=== PATIENT | female | born 1965 | race Caucasian/White ===

== ENCOUNTER → 2020-05-24 12:12 | Outpatient (CLI) | payer OTHER, SELFPAY ==
--- NOTE | ~2020-05-24 | DEXA_ITS ---
Bone Density Report Name: Natalie Childs Age: 55 Sex: Female Ethnicity: White Date of : 1965 Indication: postmenopausal; screening for osteoporosis; hysterectomy; Referring Provider: GERALDINEMARTINE Study: Bone densitometry was performed. Exam Date: May 24, 2020 Accession number: [id number] Bone Density: Region BMD T-score Z-score Classification AP Spine (L1-L4) 1.076 0.3 1.3 Normal Femoral Neck (Left) 0.867 0.2 1.2 Normal Total Hip (Left) 1.106 1.3 2.0 Normal Femoral Neck (Right) 0.827 -0.2 0.9 Normal Total Hip (Right) 1.106 1.3 2.0 Normal Total Hip Mean 1.106 1.3 2.0 Normal World Health Organization criteria for BMD impression classify patients as: Normal (T-score at or above -1.0), Osteopenia (T-score between -1.0 and -2.5), or Osteoporosis (T-score at or below -2.5). 10-year Fracture Risk: FRAX not reported because: All T-scores for Spine Total, Hip Total, Femoral Neck at or above -1.0 Clinical Information Provided by Patient: Has used the following medications: Vitamin D Has the following medical conditions: Hysterectomy Patient maximum height was 67.2 Menopause Age: 53 Drinks caffeinated beverages Onset of menses at age 12 Number of children 0 Impression: The patient has normal bone mass. Discussion: BONE DENSITY IS ABOVE THE MINIMUM DESIRABLE LEVEL AT ALL SKELETAL SITES TESTED. This patient?s bone mineral density is above the minimum desirable level (T-score -1.0 or better) at all sites measured. The patient should follow a healthful lifestyle (good nutrition with adequate calcium and vitamin D, and appropriate weight-bearing exercise). Follow-Up: Consider repeating this study in 5 years or sooner if there is some new clinical indication. Reported by: [facility] on 05/24/2020 12:46:00 PM. Reviewed, dictated and finalized at location AJamie [facility]
--- NOTE | ~2020-05-24 | MM_ITS ---
EXAMINATION: MM screening [facility] BI w jannet HISTORY: Screening mammogram TECHNIQUE: Craniocaudal and mediolateral oblique 3-D tomosynthesis images were obtained and synthetic 2-D images were generated. CAD analysis was submitted and interpreted. COMPARISON: 10/06/2018, 09/09/2017, 08/28/2016 BREAST PARENCHYMAL COMPOSITION: There are scattered areas of fibroglandular density. FINDINGS: There is no evidence of suspicious mass, calcification, or architectural distortion to sugg est malignancy in either breast. There has been no suspicious interval change. IMPRESSION: 1. No mammographic evidence of malignancy. 2. Recommend routine screening mammography in one year. BI-RADS Category 1: Negative Reviewed, dictated and finalized at location A.
== END ==
PROVIDERS: Referring Provider Nurse Practitioner Family; Visit Provider Obstetrics & Gynecology Gynecology
DX: Z12.31 Encounter for screening mammogram for malignant neoplasm of breast (principal); Z78.0 Asymptomatic menopausal state
CPT/HCPCS: 77063; 77067; 77080

== ENCOUNTER → 2021-07-25 11:17 | Outpatient (CLI) | payer OTHER, SELFPAY ==
--- NOTE | ~2021-07-25 | US_ITS ---
EXAMINATION: US transvaginal DATE: 07/25/2021 11:37 INDICATION: Postmenopausal bleeding Comparison:No prior studies for comparison. TECHNIQUE: Multiple endovaginal sonographic images of the pelvis performed. FINDINGS: The uterus measures 7.8 x 3.5 x 4.2 cm. The endometrial complex measures 2.5 mm. The ovaries are not visualized, possibly atrophic. There is no free fluid in the pelvis. There are no abnormal masses seen on either side. IMPRESSION: 1. Unremarkable pelvic ultrasound. Reviewed, dictated and finalized at location B. RETE PUMP OPERATOR HELPER
== END ==
PROVIDERS: Visit Provider Obstetrics & Gynecology
DX: N95.0 Postmenopausal bleeding (principal)
CPT/HCPCS: 76830

== ENCOUNTER → 2021-07-27 13:23 | Outpatient (CLI) | payer OTHER, SELFPAY ==
--- NOTE | ~2021-07-27 | MM_ITS ---
EXAMINATION: MM screening [facility] BI w jannet HISTORY: Screening mammogram TECHNIQUE: Craniocaudal and mediolateral oblique 3-D tomosynthesis images were obtained and synthetic 2-D images were generated. CAD analysis was submitted and interpreted. COMPARISON: 05/24/2020, , 09/09/2017 bilateral screening mammogram examinations BREAST PARENCHYMAL COMPOSITION: There are scattered areas of fibroglandular density. FINDINGS: There is no evidence of suspicious mass, calcification, or architectural distortion to sugg est malignancy in either breast. There has been no suspicious interval change. IMPRESSION: 1. No mammographic evidence of malignancy. 2. Recommend routine screening mammography in one year. BI-RADS Category 1: Negative Reviewed, dictated and finalized at location A. L CAMPAIGN SPECIALIST
== END ==
PROVIDERS: Visit Provider Obstetrics & Gynecology Gynecology
DX: Z12.31 Encounter for screening mammogram for malignant neoplasm of breast (principal)
CPT/HCPCS: 77063; 77067

== ENCOUNTER → 2023-02-19 13:31 | Outpatient (CLI) | payer OTHER, SELFPAY ==
--- NOTE | ~2023-02-19 | MM_ITS ---
EXAMINATION: MM screening [facility] BI w jannet HISTORY: Screening mammogram TECHNIQUE: Craniocaudal and mediolateral oblique 3-D tomosynthesis images were obtained and synthetic 2-D images were generated. CAD analysis was submitted and interpreted. COMPARISON: 07/27/2021, 05/24/2020, bilateral screening mammogram examinations BREAST PARENCHYMAL COMPOSITION: There are scattered areas of fibroglandular density. FINDINGS: There is an approximately 4.5 mm irregular mass in the lower outer left breast (MLO Tomosyn thesis image 16/91). Diagnostic left mammogram is recommended, with ultrasound if required. Otherwise there is no evidence of suspicious mass, calcification, or architectural distortion to sugg est malignancy in either breast. There has been no other suspicious interval change. IMPRESSION: 1. Possible 4.5 mm irregular mass, lower outer left breast 2. Diagnostic left mammogram is recommended with ultrasound if required BI-RADS Category 0: Incomplete: Needs additional imaging evaluation. Reviewed, dictated and finalized at location A.
== END ==
PROVIDERS: PCP Obstetrics & Gynecology Gynecology; Visit Provider Nurse Practitioner
DX: Z12.31 Encounter for screening mammogram for malignant neoplasm of breast (principal); R92.8 Other abnormal and inconclusive findings on diagnostic imaging of breast
CPT/HCPCS: 77063; 77067

== ENCOUNTER → 2023-03-28 08:46 | Outpatient (CLI) | payer OTHER, SELFPAY ==
--- NOTE | ~2023-03-28 | US_ITS ---
US breast LT limited DATE: 03/28/2023 09:34 INDICATION: Possible 4.5 mm irregular mass reported in lower outer left breast on 02/19/2023 screening mammogram TECHNIQUE: Lower-outer quadrant left breast ultrasound examination COMPARISON: 02/11/2023 bile screening mammogram 03/28/2023 diagnostic mammogram FINDINGS: Please refer to 03/28/2023 combined left diagnostic mammogram and left Limited breast ultraso und report IMPRESSION: BI-RADS Category 2: Benign findings Recommendation: Routine annual mammographic screening Reviewed, dictated and finalized at Location A. Reviewed, dictated and finalized at location A.
--- NOTE | ~2023-03-28 | MM_ITS ---
EXAMINATION: MM diagnostic [facility] LT w jannet HISTORY: Possible 4.5 mm irregular mass at lower outer left breast reported on 02/11/2023 screening ma mmogram examination TECHNIQUE: Additional 3-D tomosynthesis images of the left breast were performed and synthetic 2-D im ages were generated. CAD analysis was submitted and interpreted. High resolution lower outer quadrant left breast ultrasound was performed. COMPARISON: 02/11/2023 screening mammogram FINDINGS: MAMMOGRAPHIC FINDINGS: No suspicious mass or architectural distortion, malignant microcalcifications, skin thickening or ret raction is evident. ULTRASOUND: 4:00 6 cm from nipple: 3 mm probable cyst, with through transmission 6:00 6 cm from nipple: Parallel circumscribed 2.6 x 4.7 mm hypoechoic lesion with fatty hilum, consis tent with small benign-appearing lymph node. No suspicious mass or shadowing is evident. IMPRESSION: 1. Benign findings; no mammographic or sonographic evidence of malignancy 2. Routine annual mammographic screening is recommended. BI-RADS Category 2: Benign finding(s). Reviewed, dictated and finalized at location A.
== END ==
PROVIDERS: PCP Obstetrics & Gynecology Gynecology; Visit Provider Obstetrics & Gynecology Gynecology
DX: R92.8 Other abnormal and inconclusive findings on diagnostic imaging of breast (principal)
CPT/HCPCS: 76642; 77061; 77065; G0279

== ENCOUNTER 2023-07-14 00:03 | Day surgery (SDC) | payer OTHER, SELFPAY ==
[2023-06-26 12:13] VITALS: BMI 41.8
--- NOTE | 2023-07-11 09:57 | SUR.PREOP ---
Patient called regarding upcoming procedure. Reviewed preop instructions, appointment times, and procedure prep.
--- NOTE | 2023-07-11 17:12 | PM.HPGS ---
History of Present Illness History of Present Illness Consent: Risks, benefits, and alternatives have been discussed and questions answered. Patient agrees to proceed with procedure. Chief complaint: neoplasm screening Narrative: Natalie Childs is a 58 year old female Referred for colon cancer screening. Review of Systems Review of Systems: All systems reviewed & are unremarkable except as noted in HPI and [facility] Social History Social History Smoking status: Former smoker Tobacco type: cigarettes Alcohol intake: current Alcohol use details: occasional Substance use: never Substance use type: does not use Living arrangements: with family Spiritual care concerns: No Meds Home Medications and Allergies Home Medications Medication Instructions Recorded Confirmed Type ergocalciferol (vitamin D2) 1,250 100,000 unit PO DAILY 06/26/23 07/14/23 History mcg (50,000 unit) capsule levothyroxine 175 mcg tablet 175 mcg PO DAILY 06/26/23 07/14/23 History (Synthroid) Allergies Allergy/AdvReac Type Severity Reaction Status Date / Time No Known Allergies Allergy Verified 07/14/23 06:20 Exam Const: General: alert Nutritional Appearance: overweight Orientation/consciousness: patient oriented x3 Resp: Auscultation: clear to auscultation bilaterally Cardio: Rhythm: regular rhythm GI: GI Palp: Yes Soft to palpation and No Tenderness to palpation present (GI) Neuro: General: patient oriented x3 Assessment and Plan Assessment and plan (1) Colon cancer screening: Code(s): Z12.11 - Encounter for screening for malignant neoplasm of colon Status: Acute Assessment and Plan: Colonoscopy with possible biopsy or polypectomy or cautery or injection of substances.
[2023-07-14 06:14] VITALS: BP 147/87; PULSE 62; RESP 18; TEMP 36.7; O2SAT 100; BMI 40.8
[2023-07-14] MEDS: LACTATED RINGERS 1,000 ML 150 ML IV CONT (06:31)
--- NOTE | 2023-07-14 07:23 | WPDANESEPPF ---
Anes - Initial Pre Proc Eval Procedure: Operation Date: 07/14/23 07:30 Proposed Procedures p Screening Colonoscopy - Severo Valdez MD Date/Time: 07/14/23 07:23 Surgeon: Sevreo Valdez MD Pre Op Diagnosis: neoplasm screening Patient Data Age: 58 Gender: F Height: 1.73 m Weight: 122 kg Last Vital Signs Temp 98.0 F 07/14/23 06:14 Pulse 62 07/14/23 06:14 Resp 18 07/14/23 06:14 BP 147/87 H 07/14/23 06:14 Pulse Ox 100 07/14/23 06:14 O2 Del Method Room Air 07/14/23 06:14 Allergies Allergy/AdvReac Type Severity Reaction Status Date / Time No Known Allergies Allergy Verified 07/14/23 06:20 Home Medications Medication Instructions Recorded Confirmed Type ergocalciferol (vitamin D2) 1,250 100,000 unit PO DAILY 06/26/23 07/14/23 History mcg (50,000 unit) capsule levothyroxine 175 mcg tablet 175 mcg PO DAILY 06/26/23 07/14/23 History (Synthroid) Patient hx anesthesia problems: none Family hx anesthesia problems: none Results Review: All pre-operative results and documents have been reviewed as part of the pre-operative evaluation. [facility] Social History Social History Smoking status: Former smoker Tobacco type: cigarettes Alcohol intake: current Alcohol use details: occasional Substance use: never Substance use type: does not use Living arrangements: with family Spiritual care concerns: No Anes - Eval Final PreProcedure Day of Procedure 07/14/23 07:23 Patient weight: morbidly obese Heart: regular rate and rhythm Lungs: clear to auscultation Airway: Mallampati scale class II Neurological: alert and oriented Last oral intake: >/= 8 hours ASA classification: III Emergent: no Anesthetic plan: proceed Anesthesia type and monitoring: general GIVS and standard monitoring Results Review: All pre-operative results and documents have been reviewed as part of the pre-operative evaluation. Informed Consent: The patient's anesthetic plan and its attendant risks and benefits were discussed with the patient/family/POA. Questions were solicited and answers provided to the satisfaction of the patient/family/POA.
[2023-07-14 08:19] VITALS: BP 153/92; PULSE 74; RESP 18; O2SAT 99
[2023-07-14 08:29] VITALS: BP 148/104; PULSE 74; RESP 17; O2SAT 100
[2023-07-14 08:39] VITALS: BP 156/78; PULSE 68; RESP 19; O2SAT 100
== END 2023-07-14 08:43 | disposition home or self-care (01) ==
PROVIDERS: PCP Obstetrics & Gynecology Gynecology; Visit Provider Internal Medicine Gastroenterology
PROC: 0DJD8ZZ Inspection of Lower Intestinal Tract, Via Natural or Artificial Opening Endoscopic (ICD-10-PCS; CPT 45378; principal; 2023-07-14 07:30)
DX: Z12.11 Encounter for screening for malignant neoplasm of colon (principal); K57.30 Diverticulosis of large intestine without perforation or abscess without bleeding; E66.01 Morbid (severe) obesity due to excess calories; Z68.41 Body mass index [BMI] 40.0-44.9, adult; Z87.891 Personal history of nicotine dependence
CPT/HCPCS: 45378; J2704; J7120

== ENCOUNTER 2024-05-03 07:17 | Outpatient (CLI) | payer OTHER, SELFPAY ==
--- NOTE | ~2024-05-03 | MM_ITS ---
EXAMINATION: MM screening [facility] BI w jannet HISTORY: Screening mammogram TECHNIQUE: Craniocaudal and mediolateral oblique 3-D tomosynthesis images were obtained and synthetic 2-D images were generated. CAD analysis was submitted and interpreted. COMPARISON: 02/11/2023, 07/27/2021, 04/27/2020 BREAST PARENCHYMAL COMPOSITION:Not Dense. The breasts are almost entirely fatty FINDINGS: No suspicious mass, calcification, or architectural distortion are identified in either mk ast to suggest malignancy. There has been no suspicious interval change. IMPRESSION: No mammographic evidence of malignancy. Recommend routine screening mammography in one year. BI-RADS Category 1: Negative Reviewed, dictated and finalized at location .
== END 2024-05-03 07:18 | disposition home or self-care (01) ==
PROVIDERS: PCP Nurse Practitioner; Visit Provider Nurse Practitioner
DX: Z12.31 Encounter for screening mammogram for malignant neoplasm of breast (principal)
CPT/HCPCS: 77063; 77067

== ENCOUNTER 2024-10-08 12:47 | Outpatient (CLI) | payer OTHER, SELFPAY ==
--- NOTE | ~2024-10-08 | US_ITS ---
EXAMINATION: US soft tissue head and neck DATE: 10/08/2024 13:04 INDICATION: Left neck focal swelling. TECHNIQUE: Multiple grayscale and Doppler ultrasound images of the head and neck were obtained. COMPARISON: None FINDINGS: In the left supraclavicular region, there is a 4.2 x 2.2 x 3.1 cm mass with similar echotex ture and echogenicity to normal subcutaneous fat, consistent with a lipoma. IMPRESSION: 1. 4.2 cm lipoma in left supraclavicular region. Reviewed, dictated and finalized at location A. NEYMAN OPERATOR ASSISTANT
== END 2024-10-08 12:48 | disposition home or self-care (01) ==
LOC: MICIMG 12:48
PROVIDERS: PCP Nurse Practitioner Women's Health; Visit Provider Nurse Practitioner Women's Health
DX: D17.0 Benign lipomatous neoplasm of skin and subcutaneous tissue of head, face and neck (principal)
CPT/HCPCS: 76536

== ENCOUNTER 2025-01-31 09:48 | Outpatient (CLI) | payer OTHER, SELFPAY ==
--- NOTE | ~2025-01-31 | CT_ITS ---
Clinical Indication: Localized swelling CT Scan of the Chest with Contrast: Technique: Contiguous sections were acquired throughout the chest after intravenous administration of 75 cc of Omnipaque 350. Dose reduction technique was used on this scan by utilizing automated exposu re control and iterative reconstruction technique. The dose-length product (DLP) was 651.33 mGy-cm. Findings: There is no evidence of any significant mediastinal, hilar or axillary lymphadenopathy. There is no f illing defect in the pulmonary arterial tree to suggest pulmonary embolus. There is no evidence of ao rtic dissection or aneurysm. There is no evidence of pleural or pericardial effusion. The lungs are clear. No pulmonary nodules or infiltrates are noted. Images through the upper abdomen reveal probable diffuse hepatic steatosis. Impression: No significant abnormality seen. Reviewed, dictated and finalized at [facility]. Impression: No significant abnormality seen.
== END 2025-01-31 09:49 | disposition home or self-care (01) ==
PROVIDERS: PCP Obstetrics & Gynecology Gynecology; Visit Provider Surgery
DX: R22.2 Localized swelling, mass and lump, trunk (principal)
CPT/HCPCS: 71260; Q9967

== ENCOUNTER 2025-04-14 03:16 | Day surgery (SDC) | payer OTHER, SELFPAY ==
[2025-02-22 15:17] VITALS: BMI 43.5
--- NOTE | 2025-02-22 15:24 | PC.NURSE ---
Report to the Outpatient Waiting Room, entrance under the green pavilion located off [facility], at time _1000_ on date _03/03/25_. Planned Procedure Time: _1200__.? Time changes happen often and if your time is changed the preop area will call you the afternoon before. - You and your visitor will be asked to self-screen and do not enter if you have any COVID symptoms. Please call surgeon if you need to reschedule. - A mask is optional within the hospital at this time. Patients may have clear liquids (water, carbonated beverages, clear teas, apple juice) until 3 hours prior to surgery with a maximum of 20 ounces. - No food from midnight until time of surgery and no smoking, or chewing tobacco (or any form of nicotine). No chewing gum, candy or mints. - Infants may have breast milk until 4 hours before surgery, infant formula 6 hours prior to surgery. - Children will be allowed to drink immediately following surgery.? If applicable, please bring a bottle or sippy cup to assist with drinking. Juice, water, soda, and popsicles are readily available.? For infants on formula, please bring formula the day of surgery.? Pacifiers are allowed. Take only the following medications with a SIP of water on the morning of surgery: LEVOTHYROXINE DO NOT STOP ANY OF YOUR OTHER PRESCRIPTION MEDICATIONS PRIOR TO SURGERY EXCEPT THE FOLLOWING Hold all vitamins and supplements for 3 days per anesthesiologist. Medications to discontinue per physician Date to take last dose Please no make-up, nail bulgarian, hairspray, perfume, deodorant, or body powder the day of surgery.? No jewelry (including any body piercings) or valuables the day of surgery, leave them at home.? Please take a shower or bath the night before, or the morning of, surgery with HIBICLENS antibacterial soap.? Wear comfortable, loose fitting clothing.? Children are encouraged to wear pajamas. - Jewelry must be removed prior to entering the operating room.? Rings and piercings that are not removed may be cut off. - The hospital will not accept responsibility for valuables.? - Please leave all valuables, including medications, at home the day of surgery. If you are going home after surgery, a licensed pile driver operator barge mounted must drive you home.? - NO public transportation without another adult if you receive anesthesia. - We recommend that an adult stay with you for 24 hours following discharge. - We also recommend that you do not drive, make important decision, drink alcoholic beverages, or take any drugs that were not prescribed by your health care provider for at least 24 hours after your discharge time. For Pediatric surgeries, we recommend two adults accompany the child home. Follow any additional instructions given to you from your surgeon. Telephone instructions given to ___PATIENT_and asked if any additional questions and then verbalized understanding. Patient advised to call surgeon office or pre surgery nurse liaison [phone] if any additional questions.
--- NOTE | 2025-04-06 11:18 | PC.NURSE ---
Report to the Outpatient Waiting Room, entrance under the green pavilion located off [facility], at time _1200_ on date _[id number]_. Planned Procedure Time: _2pm_.? Time changes happen often and if your time is changed the preop area will call you the afternoon before. - You and your visitor will be asked to self-screen and do not enter if you have any COVID symptoms. Please call surgeon if you need to reschedule. - A mask is optional within the hospital at this time. Patients may have clear liquids (water, carbonated beverages, clear teas, apple juice) until 3 hours prior to surgery with a maximum of 20 ounces. - No food from midnight until time of surgery and no smoking, or chewing tobacco (or any form of nicotine). No chewing gum, candy or mints. Take only the following medications with a SIP of water on the morning of surgery: ___Levothyroxine____ DO NOT STOP ANY OF YOUR OTHER PRESCRIPTION MEDICATIONS PRIOR TO SURGERY EXCEPT THE FOLLOWING Hold all vitamins and supplements for 3 days per anesthesiologist. Medications to discontinue per physician Date to take last dose Please no make-up, nail nauruan, hairspray, perfume, deodorant, or body powder the day of surgery.? No jewelry (including any body piercings) or valuables the day of surgery, leave them at home.? Please take a shower or bath the night before, or the morning of, surgery with an antibacterial soap.? Wear comfortable, loose fitting clothing.? - Jewelry must be removed prior to entering the operating room.? Rings and piercings that are not removed may be cut off. - The hospital will not accept responsibility for valuables.? - Please leave all valuables, including medications, at home the day of surgery. If you are going home after surgery, a licensed trolley coach driver must drive you home.? - NO public transportation without another adult if you receive anesthesia. - We recommend that an adult stay with you for 24 hours following discharge. - We also recommend that you do not drive, make important decision, drink alcoholic beverages, or take any drugs that were not prescribed by your health care provider for at least 24 hours after your discharge time. Follow any additional instructions given to you from your surgeon. Telephone instructions given to __Natalie__and asked if any additional questions and then verbalized understanding. Patient advised to call surgeon office or pre surgery nurse liaison [phone] if any additional questions.
--- NOTE | 2025-04-13 17:30 | P.SS_ITS ---
Same Day Admit/Disch: HPI History of Present Illness Chief complaint: Left Supraclavicular Mass Narrative: Natalie Childs is a 60 year old female who in September was noted by Dr. Vail to have a left sided supraclavicular mass. Ultrasound showed a 4.1 cm subcutaneous mass c/w a lipoma. Exam in my office suggested a [address] scan of the chest was normal. She is taken to surgery now for excision. [facility] Past Medical History Medical History Tear of meniscus of left knee as current injury Patellofemoral pain syndrome of left knee Encounter for other specified surgical aftercare Effusion, left knee Thyroid disorder Hypertension Headache Arthritis BMI greater than 40 Right knee DJD Left knee DJD Surgical History Surgical History H/O lateral meniscus repair of left knee (~02/1998) Family History Family History Father Diabetes mellitus Heart disease Mother Thyroid disorder Sibling Hypertension Social History Social History Smoking packs per day: 0.33 Smoking cigarettes per day: 6.6 Years smoked: 10 Smoking pack-years: 3.30 Smoking status: Former smoker Tobacco type: cigarettes Additional smoking assessment comments: QUIT AT AGE 29 Alcohol intake: former Alcohol use details: occasional Substance use: never Substance use type: does not use Do You Feel Safe in your Home?: Yes Lack of Transportation: No Lack of Food: Never True Current Housing: Decline to Answer Concerned About Future Housing: Decline to Answer Difficulty Paying Gas/Electric Bills: Decline to Answer Difficulty Paying for Meds: Decline to Answer Currently Unemployed: Decline to Answer Education: Decline to Answer Difficulty w/ Childcare or Family Care: Decline to Answer Living arrangements: with family Spiritual care concerns: No Same Day Admit/Disch: Med Pre-admit Medications Home Medications ?Medication ?Instructions ?Recorded ?Confirmed ?Type ergocalciferol (vitamin D2) 1,250 50,000 unit PO 2XW 1 08/26/22 02/22/25 History mcg (50,000 unit) capsule levothyroxine 175 mcg tablet 175 mcg PO DAILY 06/26/23 04/14/25 History (Synthroid) turmeric 400 mg capsule 1,000 mg PO DAILY 04/06/25 0 04/14/25 History tramadol 50 mg tablet 50 mg PO Q6H PRN pain #10 ta bs 04/14/25 Rx Review of Systems Review of Systems All systems reviewed & are unremarkable except as noted in HPI and below (HPI) Exam Const: General: comfortable, no acute distress, alert and awake HENMT: Head: normocephalic and atraumatic Mouth: Yes Normal oral and palatal mucosa present Eyes: Conjunctivae: conjunctivae normal Pupils: Equal, round and reactive pupils present EOM: EOMs intact bilaterally Neck: Neck: normal visual inspection, full ROM, no lymphadenopathy, trachea midline, supple, nontender, no JVD and other (7x5 cm left supraclavicular mass) Lymphatic: no lymphadenopathy noted Resp: Effort & Inspection: normal respiratory effort Auscultation: clear to auscultation bilaterally Cardio: Rate: regular rate Rhythm: regular rhythm Heart sounds: no gallops, no murmurs and no rubs GI: Inspection: non-distended GI Palp: Yes Soft to palpation, No Tenderness to palpation present (GI), No Hepatomegaly present and No Splenomegaly present Skin: Lesions: no lesions Rashes: no rashes Neuro: General: no focal motor deficits and CN's II-XI intact bilaterally Cranial nerves: Yes Equal, round and reactive pupils present, Yes Bilaterally intact EOM present, Yes facial symmetry and Yes Midline tongue present Speech: normal speech Motor exam (neuro): 5/5 motor strength present throughout and Motor abnormalities not present Extrem: General: no clubbing, cyanosis or edema and edema Psych: Affect: normal affect Thought process: Normal thought process present Insight: Good insight present (Psych) DS: Summary Time Spent with Patient Time attestation: Total time spent providing and/or coordinating discharge services: DS: Admitting Diagnosis Discharge Date 04/14/25 Admitting Diagnosis * left supraclavicular mass--7cm by palpation, 4.1cm by U/S in September. Plan to excise as an outpatient under anesthesia. Procedure, risks, benefits discussed. All questions answered, she wishes to proceed. * hypothyroidism--on supplement thyroid hormone * morbid obesity DS: Discharge Diagnosis Discharge Diagnosis (1) Supraclavicular mass: Code(s): R22.2 - Localized swelling, mass and lump, trunk Status: Chronic Assessment and Plan: excised 04/14/[address] Gee Discharge Plan Discharge Patient Disposition: Home Discharge Instructions: * may bathe or shower tomorrow morning. Okay to wash over incision with soap and water. * There is a surgical glue or adhesive over the incision. It will start to peel after about 1 week. Feel free to grasp and gently remove this once it is easily pulled off. * No lifting over 10-15 lb with left arm for 1 week * may drive a car on Friday. * Do not drive if taking prescription narcotic pain medication. * Call Dr. Gee or go to the emergency room if you notice severe swelling, persistent drainage or bleeding, swelling with severe bruising, temperature over 100.5?, other significant change in condition. * Numbness around the area of the incision is not uncommon. It will go away with time. * Try to ambulate for 5-10 minutes at least twice a day. Patient Language: [place] Stand Alone Forms: General Discharge Instructions Follow-up/Referrals: Castillo Gee MD [Physician, General Surgery] - 2 Weeks Discharge Medications: New tramadol 50 mg tablet 50 mg PO Q6H PRN (Reason: pain) Qty: 10 0RF Continued levothyroxine [Synthroid] 175 mcg tablet 175 mcg PO DAILY ergocalciferol (vitamin D2) 1,250 mcg (50,000 unit) capsule 50,000 unit PO 2XW Patient Comments: MON/THURS turmeric 400 mg capsule 1,000 mg PO DAILY
[2025-04-14] VITALS (7 sets, daily range): BP systolic 95–147; BP diastolic 56–92; PULSE 65–72; RESP 14–20; TEMP 36.2–36.4; O2SAT 97–100; BMI 42.3
--- NOTE | 2025-04-14 13:35 | WPDANESEPPF ---
Anes - Initial Pre Proc Eval Procedure: Operation Date: 04/14/25 14:00 Proposed Procedures p Excision of Left Supraclavicular Mass - Castillo Gee MD Date/Time: 04/14/25 13:35 Surgeon: Castillo Gee MD Pre Op Diagnosis: Left Supraclavicular Mass Patient Data Age: 60 Gender: F Height: 1.73 m Weight: 126.2 kg Last Vital Signs Temp 97.5 F L 04/14/25 12:48 Pulse 72 04/14/25 12:48 Resp 16 04/14/25 12:48 BP 145/75 H 04/14/25 12:48 Pulse Ox 97 04/14/25 12:48 O2 Del Method Room Air 04/14/25 12:48 Allergies Allergy/AdvReac Type Severity Reaction Status Date / Time No Known Allergies Allergy Verified 04/14/25 12:47 Home Medications ?Medication ?Instructions ?Recorded ?Confirmed ?Type ergocalciferol (vitamin D2) 1,250 50,000 unit PO 2XW 06/26/23 02/22/25 History mcg (50,000 unit) capsule levothyroxine 175 mcg tablet 175 mcg PO DAILY 06/26/23 04/14/25 History (Synthroid) turmeric 400 mg capsule 1,000 mg PO DAILY 04/06/25 04/14/25 History Patient hx anesthesia problems: none Family hx anesthesia problems: none Results Review: All pre-operative results and documents have been reviewed as part of the pre-operative evaluation. [facility] Past Medical History Medical History Tear of meniscus of left knee as current injury Patellofemoral pain syndrome of left knee Encounter for other specified surgical aftercare Effusion, left knee Thyroid disorder Hypertension Headache Arthritis BMI greater than 40 Right knee DJD Left knee DJD Surgical History Surgical History H/O lateral meniscus repair of left knee (~02/1998) Family History Family History Father Diabetes mellitus Heart disease Mother Thyroid disorder Sibling Hypertension Social History Social History Smoking packs per day: 0.33 Smoking cigarettes per day: 6.6 Years smoked: 10 Smoking pack-years: 3.30 Smoking status: Former smoker Tobacco type: cigarettes Additional smoking assessment comments: QUIT AT AGE 29 Alcohol intake: former Alcohol use details: occasional Substance use: never Substance use type: does not use Do You Feel Safe in your Home?: Yes Lack of Transportation: No Lack of Food: Never True Current Housing: Decline to Answer Concerned About Future Housing: Decline to Answer Difficulty Paying Gas/Electric Bills: Decline to Answer Difficulty Paying for Meds: Decline to Answer Currently Unemployed: Decline to Answer Education: Decline to Answer Difficulty w/ Childcare or Family Care: Decline to Answer Living arrangements: with family Spiritual care concerns: No Anes - Eval Final PreProcedure Day of Procedure 04/14/25 13:35 Patient weight: morbidly obese Heart: regular rate and rhythm Lungs: clear to auscultation Airway: Mallampati scale class II Neurological: alert and oriented Last oral intake: >/= 8 hours ASA classification: III Emergent: no Anesthetic plan: proceed Anesthesia type and monitoring: general LMA and standard monitoring Results Review: All pre-operative results and documents have been reviewed as part of the pre-operative evaluation. Informed Consent: The patient's anesthetic plan and its attendant risks and benefits were discussed with the patient/family/POA. Questions were solicited and answers provided to the satisfaction of the patient/family/POA.
--- NOTE | 2025-04-14 14:03 | WPDHPUPDATE1 ---
History and Physical Update Update Date/Time: 04/14/25 14:03 History and Physical has been reviewed, including an updated exam of the patient. There are NO changes in the patient's condition. Risks, benefits, and alternatives have been discussed and questions answered. Patient agrees to proceed with procedure.
[2025-04-14] MEDS: ceFAZolin 3 GM/D5W 100 ML 100 ML IVPB (14:15)
[2025-04-14] MEDS: BUPIVACAINE/EPINEPHRINE 0.5% 50 ML VIAL 20 ML INFILTRATE (14:35)
--- NOTE | 2025-04-14 15:14 | S_PTH ---
PATIENT: Natalie Childs LOC: [facility] U#:[id number] AGE/SX: 60/F ROOM: RE04/14/[address]: Castillo Gee MD : 1965 BED: DIS: 04/14/2025 SPEC #: [id number] RECD: 04/15/25 07:06 STATUS: KAYLA REQ #: [id number] MARIANNE: 04/14/25 15:[address]: Castillo Gee DEPT: [facility] Surgical RECD BY: Cesilia Caputo ENTERED: 04/15/25 07:07 SP TYPE: Surgical OTHR DR: UNKNOWN,DOCTOR Tissues: A - Mass Procedures: Hematoxylin and Eosin Stain Gross and Microscopic Level 3
[2025-04-14] MEDS: LACTATED RINGERS 1,000 ML 30 ML IV CONT (15:40)
--- NOTE | 2025-04-14 15:51 | P.OP_ITS ---
Procedure Note - Detailed Date of Procedure 04/14/25 Pre-op Diagnosis Left Supraclavicular Mass Post-op Diagnosis Same Procedure Performed Excision deep 5 cm left supraclavicular mass with no margin Surgeon Castillo Gee MD [employer] Anesthesia General ( laryngeal mask airway) and Local Indications patient was noted to have a left supraclavicular subcutaneous mass. Exam suggested a lipoma. Ultrasound was done and also suggested this was a lipoma. CT scan of the chest was negative. She is taken to surgery now for excision. Findings This was a very deep lipoma in the left supraclavicular space. It was deep to the upper border of the left trapezius muscle and well below the left clavicle. the lipoma was multilobulated rather than a discrete, encapsulated, symmetric mass. Extensive excision was required to hopefully remove all of it. For this reason, the specimen had 2 parts. Description of Procedure Patient was checked in the preoperative holding area. An outline of the mass was marked on the skin as well as the proposed incision. She was then taken to the surgery. Anesthesia was introduced with LMA. The left shoulder and neck were prepped and draped. Local was infiltrated over the anticipated incision as well as around the palpable mass. Incision was then made and deepened through the subcutaneous. We continued the dissection deep to the platysma muscle. Palpation suggested the mass was even deeper. We continued our dissection and encountered a lot of fatty tissue but with a more dense, round, palpable mass being even deeper. We dissected down to this area. I dissected around it taking care to use primarily scissor dissection and little cautery to avoid nerve injury. Eventually I was able to grasp the mass with a Elvis and elevated. It extended very deep and lateral. Self retaining as well as handheld retractors were used. Dissection was continued and then, using primarily scissor dissection, the base of the lipoma was slowly excised. Minimal cautery was used. Eventually, as this was excised more the mass was able to be brought up into the upper wound. The rest of the mass was removed. Despite its more encapsulated feeling by palpation, once the mass was out of the wound, it appeared much more multi lobulated without a discrete encapsulated lipoma being noted. Some of the surrounding fatty tissue was then excised as well. This was more anterior. This was sent as part of the specimen. I then palpated the depths of the wound. Some more deeper fatty tissue that had some normal size lymph nodes was carefully excised. This was all sent as part of the specimen. The wound was then examined both by visual inspection and palpation. No evidence of bleeding was noted. No subcutaneous tissue of suspicion was still present. The wound was closed in layers. The platysma was closed with interrupted 3-0 Vicryl suture. Subcuticular interrupted 4-0 Vicryl skin sutures were then placed. The skin was finally closed with a running 4-0 Monocryl skin suture. The wound was dressed with Exofin surgical adhesive. Patient was then awakened and taken to recovery in good condition. Sponge needle counts were correct x2. Estimated Blood Loss -2 Drains No Packing No Pathology Yes ( Subcutaneous deep supraclavicular mass consistent with lipoma) Complications None Condition Stable Disposition PACU [facility] Billing Surgery - Charge Forward: Surgery Billing ( excision of 5 cm, deep, left supraclavicular mass with no margin)
== END 2025-04-14 17:00 | disposition home or self-care (01) ==
PROVIDERS: Visit Provider Surgery
PROC: (CPT 21552; principal; 2025-04-14 14:00)
DX: D17.0 Benign lipomatous neoplasm of skin and subcutaneous tissue of head, face and neck (principal); G89.18 Other acute postprocedural pain; E07.9 Disorder of thyroid, unspecified; I10 Essential (primary) hypertension; M17.0 Bilateral primary osteoarthritis of knee; E66.01 Morbid (severe) obesity due to excess calories; Z68.41 Body mass index [BMI] 40.0-44.9, adult; Z79.891 Long term (current) use of opiate analgesic; Z98.890 Other specified postprocedural states; Z87.891 Personal history of nicotine dependence; Z82.49 Family history of ischemic heart disease and other diseases of the circulatory system
CPT/HCPCS: 21552; 88304; J0690; J2003; J2250; J2405; J2704; J3010; J7120